=== PATIENT | female | born 1940 | race Caucasian/White ===

== ENCOUNTER 2024-05-10 09:55 | Inpatient (IN) | payer MEDICARE ==
[~2024-05-10] VITALS: Ht 167.6 cm; Wt 68.0 kg
[2024-05-10 10:51] LABS: BASOPHILS # (AUTO) 0.1 K/UL (0.0-0.2); BASOPHILS % (AUTO) 0.6 % (0.0-2.0); EOSINOPHILS # (AUTO) 0.1 K/uL (0.0-0.7); HEMATOCRIT 39.1 % (31.2-41.9); HEMOGLOBIN 12.7 g/dL (10.9-14.3); LYMPHOCYTES # (AUTO) 1.2 K/uL (0.8-4.8); LYMPHOCYTES % (AUTO) 13.9 % (20.5-51.5); MEAN CORPUSCULAR HEMOGLOBIN 28.9 uug (24.7-32.8); MEAN CORPUSCULAR HGB CONC 32 g/dL (32.3-35.6); MEAN CORPUSCULAR VOLUME 89.2 fL (75.5-95.3); MONOCYTES # (AUTO) 0.6 K/uL (0.1-1.30); MONOCYTES % (AUTO) 7.1 % (0.0-11.0); NEUTROPHILS # (AUTO) 6.8 K/uL (1.8-8.9); NEUTROPHILS % (AUTO) 77.4 % (38.5-71.5); PLATELET COUNT (AUTO) 266 K/uL (179-408); RED BLOOD CELL COUNT(AUTO) 4.38 MIL/uL (3.63-4.92); RED CELL DISTRIBUTION WIDTH 14.3 % (12.3-17.7); WHITE BLOOD COUNT (AUTO) 8.7 K/uL (3.8-11.8)
[2024-05-10 11:05] LABS: AMMONIA < 10 umol/L (11-32)
[2024-05-10 11:10] LABS: ALANINE AMINOTRANSFERASE 14 U/L (14-59); ALBUMIN 3.7 g/dL (3.4-5.0); ALKALINE PHOSPHATASE 247 U/L (50-136); ASPARTATE AMINOTRANSFERASE 11 U/L (15-37); BILIRUBIN,DIRECT 0.1 mg/dL (0.0-0.2); BILIRUBIN,TOTAL 0.3 mg/dL (0.2-1.0); CALCIUM 9.4 mg/dL (8.5-10.1); CARBON DIOXIDE 27 mmol/L (21-32); CHLORIDE 106 mmol/L (98-107); CREATININE 0.7 mg/dL (0.6-1.3); GLUCOSE 106 mg/dL (74-106); POTASSIUM 3.6 mmol/L (3.5-5.1); SODIUM SERUM 144 mmol/L (136-145); TOTAL PROTEIN, SERUM 7.6 g/dL (6.4-8.2); UREA NITROGEN, BLOOD 12 mg/dL (7-18)
[2024-05-10 11:19] LABS: DIFFERENTIAL COMMENT 1
[2024-05-10 11:46] LABS: *BILIRUBIN,URIN NEGATIVE (NEGATIVE); *BLOOD, URINE NEGATIVE (NEGATIVE); *CLARITY,URINE CLEAR (CLEAR); *COLOR,URINE YELLOW (YELLOW); *KETONES,URINE NEGATIVE (NEGATIVE); *PROTEIN,URINE NEGATIVE (NEGATIVE); *UROBILINOGEN,URINE 0.2 E.U./dl (NORMAL); LEUKOCYTE ESTERASE ,URINE 1+ (NEGATIVE); NITRITE, URINE NEGATIVE (NEGATIVE); UGLUCOSE NEGATIVE (NEGATIVE)
[2024-05-10 11:56] LABS: THYROID STIMULATING HORMONE 2.116 mIU/mL (0.358-3.740)
[2024-05-10 12:10] LABS: *AMPHETAMINE, URINE NEGATIVE (NEGATIVE); *BARBITURATE, URINE NEGATIVE (NEGATIVE); *BENZODIAZEPINE, URINE NEGATIVE (NEGATIVE); *CANNABINOID, URINE NEGATIVE (NEGATIVE); *COCCAINE, URINE NEGATIVE (NEGATIVE); *OPIATE, URINE NEGATIVE (NEGATIVE); *PHENCYCLIDINE SCREEN,URINE NEGATIVE (NEGATIVE); FENTANYL, URINE NEGATIVE (NEGATIVE)
[2024-05-10] MEDS: FOSFOMYCIN TROMETHAMINE 3 GM PACKET PO ONE (12:37)
[2024-05-10 15:45] VITALS: BP 126/60; TEMP 98.3; O2SAT 93
[2024-05-10 15:49] LABS: BACTERIA,URINE MANY /HPF (NONE SEEN); RBC,URINE NONE SEEN /HPF (0-3); SQUAMOUS EPITHELIAL CELL,UR FEW /HPF (NONE SEEN)
[2024-05-10] MEDS: IV D5W-0.45% NS 1000 ML BAG IV ONE (20:15)
[2024-05-10] MEDS ORDERED: ONDANSETRON 4 MG/2 ML VIAL IV PRN (20:15)
[2024-05-10] MEDS ORDERED: CEFTRIAXONE 1 G VIAL IM SCH (20:30)
[2024-05-10] MEDS: DOCUSATE SODIUM 100 MG CAPSULE PO SCH (21:43)
[2024-05-10] MEDS: LORAZEPAM 2 MG/1 ML VIAL IM PRN (23:09)
[2024-05-11] MEDS: TEMAZEPAM 15 MG CAPSULE PO PRN (01:09)
[2024-05-11 07:05] LABS: BASOPHILS # (AUTO) 0.1 K/UL (0.0-0.2); BASOPHILS % (AUTO) 1.1 % (0.0-2.0); EOSINOPHILS # (AUTO) 0.1 K/uL (0.0-0.7); EOSINOPHILS % (AUTO) 1.6 % (0.0-7.0); HEMATOCRIT 37.1 % (31.2-41.9); HEMOGLOBIN 12.2 g/dL (10.9-14.3); LYMPHOCYTES # (AUTO) 1.3 K/uL (0.8-4.8); LYMPHOCYTES % (AUTO) 15.7 % (20.5-51.5); MEAN CORPUSCULAR HEMOGLOBIN 29.3 uug (24.7-32.8); MEAN CORPUSCULAR HGB CONC 33 g/dL (32.3-35.6); MEAN CORPUSCULAR VOLUME 88.9 fL (75.5-95.3); MONOCYTES # (AUTO) 0.7 K/uL (0.1-1.30); MONOCYTES % (AUTO) 8.4 % (0.0-11.0); NEUTROPHILS % (AUTO) 73.2 % (38.5-71.5); PLATELET COUNT (AUTO) 264 K/uL (179-408); RED BLOOD CELL COUNT(AUTO) 4.17 MIL/uL (3.63-4.92); WHITE BLOOD COUNT (AUTO) 8.2 K/uL (3.8-11.8)
[2024-05-11 07:09] LABS: DIFFERENTIAL COMMENT 1
[2024-05-11 07:10] LABS: CALCIUM 9.1 mg/dL (8.5-10.1); CARBON DIOXIDE 25 mmol/L (21-32); CHLORIDE 107 mmol/L (98-107); CREATININE 0.6 mg/dL (0.6-1.3); GLUCOSE 92 mg/dL (74-106); POTASSIUM 3.5 mmol/L (3.5-5.1); SODIUM SERUM 140 mmol/L (136-145); UREA NITROGEN, BLOOD 13 mg/dL (7-18)
[2024-05-11 07:16] VITALS: BP 122/67; TEMP 98.5; O2SAT 99
[2024-05-11 11:23] VITALS: BP 105/50; TEMP 97.8; O2SAT 94
[2024-05-11] MEDS ORDERED: MELA5TAB PO (14:17)
[2024-05-11] MEDS ORDERED: IPRA3AMP22 IH (14:17)
[2024-05-11] MEDS ORDERED: LACT10SO58 PO (14:17)
[2024-05-11] MEDS ORDERED: OLAN5TAB3 PO (14:17)
[2024-05-11] MEDS ORDERED: BISA10SU61 RC (14:17)
[2024-05-11] MEDS ORDERED: ACET650S13 RC (14:17)
[2024-05-11] MEDS ORDERED: QUET25TA PO (14:17)
[2024-05-11] MEDS ORDERED: LORA0.5T48 PO (14:17)
[2024-05-11] MEDS ORDERED: METF-440 PO (14:17)
[2024-05-11 16:12] VITALS: BP 120/74; TEMP 97.6; O2SAT 97
[2024-05-11] MEDS: LORAZEPAM 2 MG/1 ML VIAL IM PRN (18:45)
[2024-05-11 19:35] VITALS: BP 132/76; TEMP 98.4; O2SAT 95
[2024-05-12 04:46] VITALS: BP 122/57; TEMP 98.3; O2SAT 96
[2024-05-12 07:09] LABS: BASOPHILS # (AUTO) 0.1 K/UL (0.0-0.2); BASOPHILS % (AUTO) 0.9 % (0.0-2.0); EOSINOPHILS # (AUTO) 0.1 K/uL (0.0-0.7); EOSINOPHILS % (AUTO) 1.7 % (0.0-7.0); HEMATOCRIT 37.2 % (31.2-41.9); HEMOGLOBIN 12.2 g/dL (10.9-14.3); LYMPHOCYTES # (AUTO) 1.2 K/uL (0.8-4.8); LYMPHOCYTES % (AUTO) 16.1 % (20.5-51.5); MEAN CORPUSCULAR HEMOGLOBIN 29.4 uug (24.7-32.8); MEAN CORPUSCULAR HGB CONC 33 g/dL (32.3-35.6); MEAN CORPUSCULAR VOLUME 89.4 fL (75.5-95.3); MONOCYTES # (AUTO) 0.6 K/uL (0.1-1.30); MONOCYTES % (AUTO) 7.2 % (0.0-11.0); NEUTROPHILS # (AUTO) 5.7 K/uL (1.8-8.9); NEUTROPHILS % (AUTO) 74.1 % (38.5-71.5); PLATELET COUNT (AUTO) 217 K/uL (179-408); RED BLOOD CELL COUNT(AUTO) 4.16 MIL/uL (3.63-4.92); RED CELL DISTRIBUTION WIDTH 14.2 % (12.3-17.7); WHITE BLOOD COUNT (AUTO) 7.7 K/uL (3.8-11.8)
[2024-05-12 07:14] LABS: DIFFERENTIAL COMMENT 1
[2024-05-12 07:52] LABS: CARBON DIOXIDE 25 mmol/L (21-32); CHLORIDE 107 mmol/L (98-107); CHOLESTEROL 219 mg/dL (<200); CREATININE 0.7 mg/dL (0.6-1.3); GLUCOSE 89 mg/dL (74-106); HDL CHOLESTEROL 71 mg/dL (40-60); MAGNESIUM 2.3 mg/dL (1.8-2.4); PHOSPHOROUS 3.5 mg/dL (2.5-4.9); SODIUM SERUM 140 mmol/L (136-145); TRIGLYCERIDES 77 MG/DL (30-150); UREA NITROGEN, BLOOD 17 mg/dL (7-18)
[2024-05-12 11:54] VITALS: BP 100/63; TEMP 97.3; O2SAT 97
[2024-05-12 16:41] VITALS: BP 111/64; TEMP 98.6; O2SAT 96
[2024-05-12 19:56] VITALS: BP 130/68; TEMP 97.6; O2SAT 100
[2024-05-13 04:00] VITALS: BP 120/71; TEMP 98.2; O2SAT 98
[2024-05-13] MEDS: CIPROFLOXACIN HCL 250 MG TABLET PO SCH (10:06)
[2024-05-13 11:51] VITALS: BP 113/62; TEMP 97.8; O2SAT 98
[2024-05-13 15:52] VITALS: BP 115/68; TEMP 97.6; O2SAT 96
[2024-05-13 19:00] VITALS: BP 96/69; TEMP 98.4; O2SAT 93
[2024-05-13] MEDS: ACETAMINOPHEN 325 MG TABLET PO PRN (21:40)
[2024-05-13 21:46] VITALS: BP 121/85; TEMP 97.3; O2SAT 97
[2024-05-14 06:00] VITALS: BP 107/53; TEMP 97.9; O2SAT 96
[2024-05-14] MEDS: LORAZEPAM 2 MG/1 ML VIAL IM ONE (11:40)
[2024-05-14 11:52] VITALS: BP 112/66; TEMP 97.8; O2SAT 97
[2024-05-14 16:00] VITALS: BP 112/70; TEMP 98.6; O2SAT 97
[2024-05-14 21:29] VITALS: BP 108/77; TEMP 98.3; O2SAT 97
[2024-05-15 04:00] VITALS: BP 120/74; TEMP 97.7; O2SAT 97
[2024-05-15 11:55] VITALS: BP 94/50; TEMP 97.8; O2SAT 90
[2024-05-15] MEDS ORDERED: CIPR250T4 PO (13:07)
[2024-05-15] MEDS ORDERED: TEMA15CA PO (13:07)
[2024-05-15 16:31] VITALS: BP 118/72; TEMP 98.2; O2SAT 96
== END 2024-05-15 18:30 | DRG 689 ==
LOC: ER 09:55 → MEDSURG3 13:10
PROVIDERS: ADMIT Hospitalist; ATTEND Hospitalist
DX: N39.0 Urinary tract infection, site not specified (principal); G93.41 Metabolic encephalopathy; F01.518 Vascular dementia, unspecified severity, with other behavioral disturbance; I67.82 Cerebral ischemia; R41.82 Altered mental status, unspecified; G47.00 Insomnia, unspecified; J45.909 Unspecified asthma, uncomplicated; Z79.84 Long term (current) use of oral hypoglycemic drugs; Z86.73 Personal history of transient ischemic attack (TIA), and cerebral infarction without residual deficits
CPT/HCPCS: 36415; 70450; 70551; 71045; 82746; 83735; 84100; 84443; 85025; 85730; 93005; A4606; A4663; A6209; A6213; C1758; G0378; J2060; J7040